=== PATIENT | male | born 1990 | race Two or more races ===

== ENCOUNTER 2016-03-25 18:19 | Emergency (ER) | payer MEDICAID ==
[~2016-03-25] VITALS: Ht 167.6 cm; Wt 77.1 kg
[2016-03-25 21:07] LABS: Basophils # (auto) 0.1 uL; Basophils % (auto) 0.7 % (0.0-2.0); Eosinophils # (auto) 0 uL; Hematocrit 44.4 % (41.0-53.0); Hemoglobin 14.6 g/dL (13.5-17.5); Lymphocytes # (auto) 1.8 uL; Lymphocytes % (auto) 18.2 % (10.0-50.0); Mean Corpuscular Hemoglobin 31.7 pg (28.0-32.0); Mean Corpuscular Hgb Conc. 32.9 g/dL (32.0-36.0); Mean Corpuscular Volume 96.5 fL (80.0-100.0); Monocytes # (auto) 0.9 uL; Monocytes % (auto) 8.9 % (0.0-12.0); Neutrophils # (auto) 7.2 uL; Neutrophils % (auto) 72.2 % (37.0-80.0); Platelet Count (auto) 289 10^3/uL (140-450); Red Cell Distribution Width 12.1 % (11.6-16.0)
[2016-03-25 21:25] LABS: Anion Gap 11 (5-15); Blood Urea Nitrogen 10 mg/dL (7-18); Calcium 8.7 mg/dL (8.5-10.1); Carbon Dioxide 23 mmol/L (21-32); Chloride 99 mmol/L (98-107); GFR African American 115 mL/min; GFR Non-African American 95 mL/min; Glucose 102 mg/dL (74-106); Sodium 133 mmol/L (136-145)
[2016-03-25 22:11] VITALS: BP 119/74
== END 2016-03-25 22:33 | disposition home or self-care (01) ==
LOC: EDBD 18:19 → ER 18:22
DX: S09.90XA Unspecified injury of head, initial encounter (principal); R55 Syncope and collapse; F11.10 Opioid abuse, uncomplicated; W19.XXXA Unspecified fall, initial encounter; Y93.89 Activity, other specified; Y99.8 Other external cause status; Y92.89 Other specified places as the place of occurrence of the external cause
CPT/HCPCS: 36415; 70450; 80048; 80320; 85025; 99285; G0434

== ENCOUNTER 2021-03-25 05:56 | Emergency (ER) | payer SELFPAY ==
[~2021-03-25] VITALS: Ht 170.2 cm; Wt 77.1 kg
[2021-03-25 05:58] VITALS: BP 113/92
== END 2021-03-25 08:44 | disposition left against medical advice (07) ==
LOC: ER 05:56
DX: F41.9 Anxiety disorder, unspecified (principal); Z53.21 Procedure and treatment not carried out due to patient leaving prior to being seen by health care provider

== ENCOUNTER 2021-11-01 17:27 | Inpatient (IN) | payer MEDICAID ==
[~2021-11-01] VITALS: Ht 170.2 cm; Wt 96.5 kg
[2021-11-01] MEDS ORDERED: SODIUM CHLORIDE 0.9% 2,000 ML IV ONE (18:45)
[2021-11-01] MEDS ORDERED: VANCOMYCIN 1GM/250ML 250 ML IV ONE (18:45)
[2021-11-01] MEDS ORDERED: CEFEPIME 1GM/ 50ML 50 ML IV ONE (18:45)
[2021-11-01 19:26] LABS: Basophils # (auto) 0 10 ^3/uL (0-0.2); Basophils % (auto) 0.1 % (0.0-2.0); Eosinophils # (auto) 0 10 ^3/uL (0-0.8); Eosinophils % (auto) 0.2 % (0.0-7.0); Hematocrit 33.7 % (41.0-53.0); Hemoglobin 11.7 g/dL (13.5-17.5); Lymphocytes # (auto) 0.8 10 ^3/uL (0.4-5.4); Lymphocytes % (auto) 8.7 % (10.0-50.0); Mean Corpuscular Hemoglobin 30.2 pg (28.0-32.0); Mean Corpuscular Hgb Conc. 34.7 g/dL (32.0-36.0); Monocytes # (auto) 1.3 10 ^3/uL (0-1.3); Monocytes % (auto) 13.5 % (0.0-12.0); Neutrophils # (auto) 7.5 10 ^3/uL (1.6-8.6); Neutrophils % (auto) 77.5 % (37.0-80.0); Red Blood Cells 3.87 10^6/uL (4.5-5.90); Red Cell Distribution Width 12.3 % (11.8-14.3); White Blood Cell 9.7 10^3/uL (4.4-10.8)
[2021-11-01 19:41] LABS: Albumin 2.6 g/dL (3.4-5.0); BUN/Creatinine Ratio 11.5; Calcium 8.2 mg/dL (8.5-10.1); Potassium 4.2 mmol/L (3.5-5.1)
[2021-11-01 19:44] LABS: Bilirubin, Total 0.6 mg/dL (0.2-1.0); Total Protein 7.6 g/dL (6.4-8.2)
[2021-11-01] MEDS ORDERED: HYDROcodone-ACET 5/325MG TAB PO ONE ×2 (20:45→23:15)
[2021-11-01] MEDS ORDERED: IOHEXOL 300 MG/ML 100ML BOTTLE IJ ONE ×2 (21:05)
[2021-11-01] MEDS ORDERED: ALBUMIN 5% 250 ML IV ONE (23:15)
[2021-11-01] MEDS ORDERED: ACETAMINOPHEN 325 MG TAB PO PRN (23:15)
[2021-11-01] MEDS ORDERED: FAMOTIDINE (10MG/ML) 2ML VL IV ONE (23:15)
[2021-11-01] MEDS ORDERED: diphenhdrAMINE HCL 50 MG/1 ML VL IV ONE (23:15)
[2021-11-01] MEDS ORDERED: VANCOMYCIN PER PHARMACY 0 MG IV SCH (23:15)
[2021-11-01] MEDS ORDERED: ONDANSETRON HCL 4 MG/2 ML VIAL IV PRN (23:15)
[2021-11-01] MEDS ORDERED: DexAMETHasone SOD PHOS 10MG/1ML VIAL INJ IV ONE (23:15)
[2021-11-01] MEDS ORDERED: TEMAZEPAM 15 MG CAP PO PRN (23:15)
[2021-11-02 04:57] LABS: Basophils # (auto) 0 10 ^3/uL (0-0.2); Basophils % (auto) 0.1 % (0.0-2.0); Eosinophils # (auto) 0 10 ^3/uL (0-0.8); Hemoglobin 11.4 g/dL (13.5-17.5); Lymphocytes # (auto) 0.6 10 ^3/uL (0.4-5.4); Lymphocytes % (auto) 7.3 % (10.0-50.0); Mean Corpuscular Hgb Conc. 34.7 g/dL (32.0-36.0); Mean Corpuscular Volume 86.6 fL (80.0-100.0); Monocytes # (auto) 0.6 10 ^3/uL (0-1.3); Neutrophils # (auto) 7.2 10 ^3/uL (1.6-8.6); Neutrophils % (auto) 85.6 % (37.0-80.0); Red Blood Cells 3.81 10^6/uL (4.5-5.90); Red Cell Distribution Width 12.2 % (11.8-14.3); White Blood Cell 8.4 10^3/uL (4.4-10.8)
[2021-11-02 05:10] LABS: Albumin 2.3 g/dL (3.4-5.0); Calcium 7.6 mg/dL (8.5-10.1)
[2021-11-02 05:13] LABS: BUN/Creatinine Ratio 13.1; Bilirubin, Total 0.5 mg/dL (0.2-1.0)
[2021-11-02] MEDS ORDERED: SODIUM CHLORIDE 0.9% 500 ML IV ONE (07:00)
[2021-11-02] MEDS: cefTRIAXone 1GM/50ML D5W 50 ML IV SCH (08:56)
[2021-11-02] MEDS: HYDROcodone-ACET 5/325MG TAB PO PRN ×3 (08:56→23:52)
[2021-11-02] MEDS: PANTOPRAZOLE 40 MG TAB PO SCH (08:56)
[2021-11-02] MEDS: SODIUM CHLORIDE 0.9% 1,000 ML IV SCH ×2 (09:25→18:44)
[2021-11-02] MEDS: LORazepam 0.5 MG TAB PO PRN (14:32)
[2021-11-02] MEDS: VANCOMYCIN 1GM/250ML 250 ML IV SCH (18:44)
[2021-11-02 22:00] VITALS: BP 101/73
[2021-11-03] MEDS: LORazepam 0.5 MG TAB PO PRN ×2 (01:46→21:46)
[2021-11-03] MEDS: SODIUM CHLORIDE 0.9% 1,000 ML IV SCH ×2 (04:57→14:00)
[2021-11-03 05:00] VITALS: BP 96/65
[2021-11-03 09:04] VITALS: BP 106/77
[2021-11-03] MEDS: HYDROcodone-ACET 5/325MG TAB PO PRN (09:48)
[2021-11-03] MEDS: PANTOPRAZOLE 40 MG TAB PO SCH (09:57)
[2021-11-03] MEDS: cefTRIAXone 1GM/50ML D5W 50 ML IV SCH (09:57)
[2021-11-03 13:00] VITALS: BP 105/75
[2021-11-03] MEDS: HYDROcodone-ACET 10/325MG TAB PO PRN (14:06)
[2021-11-03] MEDS ORDERED: METHADONE HCL 10 MG TAB PO ONE (15:45)
[2021-11-03 17:01] VITALS: BP 121/74
[2021-11-03] MEDS: VANCOMYCIN 1GM/250ML 250 ML IV SCH (17:42)
[2021-11-03] MEDS ORDERED: FUROSEMIDE 20 MG/2 ML VIAL IV ONE (19:30)
[2021-11-03 22:00] VITALS: BP 117/75
[2021-11-03] MEDS ORDERED: traZODone HCL 50 MG TAB PO SCH (22:00)
[2021-11-03 22:14] LABS: BUN/Creatinine Ratio 21.7; Calcium 7.9 mg/dL (8.5-10.1); Potassium 3.4 mmol/L (3.5-5.1)
[2021-11-04 04:08] LABS: Protein, Urine 54.2 mg/dL (0.0-11.9)
[2021-11-04 05:00] VITALS: BP 110/70
[2021-11-04 06:24] LABS: Albumin 1.9 g/dL (3.4-5.0); BUN/Creatinine Ratio 25.6; Calcium 7.8 mg/dL (8.5-10.1); Phosphorus 3.2 mg/dL (2.5-4.90); Potassium 3.5 mmol/L (3.5-5.1)
[2021-11-04] MEDS ORDERED: lamoTRIgine 25 MG TAB PO SCH (10:00)
[2021-11-04] MEDS: cefTRIAXone 1GM/50ML D5W 50 ML IV SCH (10:33)
[2021-11-04] MEDS: METHADONE HCL 10 MG TAB PO SCH (10:35)
[2021-11-04] MEDS: PANTOPRAZOLE 40 MG TAB PO SCH (10:37)
[2021-11-04] MEDS: HYDROcodone-ACET 10/325MG TAB PO PRN ×3 (10:38→20:51)
[2021-11-04] MEDS: SODIUM CHLORIDE 0.9% 1,000 ML IV SCH ×3 (10:40→21:29)
[2021-11-04] MEDS ORDERED: VANCOMYCIN 1GM/250ML 250 ML IV SCH (13:00)
[2021-11-04] MEDS: LORazepam 0.5 MG TAB PO PRN ×2 (13:40→22:26)
[2021-11-04] MEDS: VANCOMYCIN 1GM/250ML 250 ML IV SCH (16:00)
[2021-11-04] MEDS ORDERED: ARTIFICIAL TEARS 15ml EACHEYE PRN (17:30)
[2021-11-04] MEDS ORDERED: DexAMETHasone SOD PHOS 10MG/1ML VIAL INJ IV ONE (18:45)
[2021-11-04] MEDS: SALINE 0.65 % NASAL SPRAY 45ML BOTTLE EACHNOSTRI SCH ×2 (20:55→22:00)
[2021-11-04] MEDS: MEROPENEM 1GM IVPB 100 ML IV SCH (21:08)
[2021-11-04 22:00] VITALS: BP 117/79
[2021-11-04] MEDS: DexAMETHasone SOD PHOS 4 MG/1ML SDV INJ IV SCH (22:00)
[2021-11-04 22:04] LABS: Urine Bacteria FEW /hpf (None Seen); Urine Blood 3+ /uL (Negative); Urine Specific Gravity 1.009 (1.001-1.035); Urine WBC 34 /hpf (0 - 3)
[2021-11-04 22:14] LABS: Alcohol, Urine < 3.0 mg/dL (0-10); Amphetamine Screen, Urine NEGATIVE (NEGATIVE); Barbiturate Scree,Urine NEGATIVE (NEGATIVE); Benzodiazephine Screen, Urine NEGATIVE (NEGATIVE); Cannabinoid Screen, Urine NEGATIVE (NEGATIVE); Cocaine Screen, Urine NEGATIVE (NEGATIVE); Opiate Scree,Urine POSITIVE (NEGATIVE); Phencyclidine Screen, Urine NEGATIVE (NEGATIVE)
[2021-11-05] MEDS: VANCOMYCIN 1GM/250ML 250 ML IV SCH ×2 (04:19→17:11)
[2021-11-05] MEDS: HYDROcodone-ACET 10/325MG TAB PO PRN ×3 (04:27→20:45)
[2021-11-05 05:00] VITALS: BP 100/67
[2021-11-05] MEDS: SODIUM CHLORIDE 0.9% 1,000 ML IV SCH ×2 (06:00→16:00)
[2021-11-05] MEDS: MEROPENEM 1GM IVPB 100 ML IV SCH ×3 (06:12→22:12)
[2021-11-05] MEDS: DexAMETHasone SOD PHOS 4 MG/1ML SDV INJ IV SCH ×3 (06:12→22:07)
[2021-11-05] MEDS: SALINE 0.65 % NASAL SPRAY 45ML BOTTLE EACHNOSTRI SCH ×4 (06:48→22:13)
[2021-11-05 07:39] LABS: Basophils # (auto) 0 10 ^3/uL (0-0.2); Basophils % (auto) 0.1 % (0.0-2.0); Eosinophils # (auto) 0 10 ^3/uL (0-0.8); Hematocrit 34.7 % (41.0-53.0); Hemoglobin 11.8 g/dL (13.5-17.5); Lymphocytes % (auto) 16.7 % (10.0-50.0); Mean Corpuscular Hgb Conc. 34.1 g/dL (32.0-36.0); Mean Corpuscular Volume 87.9 fL (80.0-100.0); Monocytes # (auto) 0.3 10 ^3/uL (0-1.3); Monocytes % (auto) 5.4 % (0.0-12.0); Neutrophils # (auto) 4.5 10 ^3/uL (1.6-8.6); Neutrophils % (auto) 77.8 % (37.0-80.0); Red Blood Cells 3.95 10^6/uL (4.5-5.90); White Blood Cell 5.8 10^3/uL (4.4-10.8)
[2021-11-05 08:02] LABS: Albumin 2.1 g/dL (3.4-5.0); BUN/Creatinine Ratio 19.5; Calcium 7.9 mg/dL (8.5-10.1); Magnesium 2.3 mg/dL (1.6-2.6); Potassium 4.6 mmol/L (3.5-5.1)
[2021-11-05 08:10] LABS: Bilirubin, Total 0.2 mg/dL (0.2-1.0); CRP High Sensitivity 4.07 mg/dL (< 0.3); Total Protein 6.4 g/dL (6.4-8.2)
[2021-11-05 09:00] VITALS: BP 115/74
[2021-11-05] MEDS: PANTOPRAZOLE 40 MG TAB PO SCH (09:45)
[2021-11-05] MEDS: METHADONE HCL 10 MG TAB PO SCH (09:46)
[2021-11-05 13:00] VITALS: BP 122/80
[2021-11-05 17:00] VITALS: BP 130/74
[2021-11-05] MEDS: LORazepam 0.5 MG TAB PO PRN ×2 (17:11→22:07)
[2021-11-06 00:20] VITALS: BP 128/74
[2021-11-06] MEDS: SODIUM CHLORIDE 0.9% 1,000 ML IV SCH ×2 (02:00→12:00)
[2021-11-06 05:11] VITALS: BP 114/73
[2021-11-06] MEDS: MEROPENEM 1GM IVPB 100 ML IV SCH ×3 (05:57→22:47)
[2021-11-06] MEDS: DexAMETHasone SOD PHOS 4 MG/1ML SDV INJ IV SCH ×2 (05:57→22:47)
[2021-11-06] MEDS: SALINE 0.65 % NASAL SPRAY 45ML BOTTLE EACHNOSTRI SCH ×4 (06:08→22:46)
[2021-11-06] MEDS: HYDROcodone-ACET 10/325MG TAB PO PRN ×3 (06:08→20:42)
[2021-11-06 08:10] VITALS: BP 114/80
[2021-11-06 09:13] LABS: Basophils # (auto) 0.1 10 ^3/uL (0-0.2); Basophils % (auto) 0.9 % (0.0-2.0); Eosinophils # (auto) 0 10 ^3/uL (0-0.8); Hematocrit 33.8 % (41.0-53.0); Hemoglobin 11.5 g/dL (13.5-17.5); Lymphocytes # (auto) 1.2 10 ^3/uL (0.4-5.4); Lymphocytes % (auto) 13.1 % (10.0-50.0); Mean Corpuscular Hgb Conc. 34.1 g/dL (32.0-36.0); Monocytes # (auto) 0.4 10 ^3/uL (0-1.3); Monocytes % (auto) 4.1 % (0.0-12.0); Neutrophils # (auto) 7.7 10 ^3/uL (1.6-8.6); Neutrophils % (auto) 81.9 % (37.0-80.0); Red Blood Cells 3.84 10^6/uL (4.5-5.90); Red Cell Distribution Width 13.2 % (11.8-14.3); White Blood Cell 9.4 10^3/uL (4.4-10.8)
[2021-11-06] MEDS: LORazepam 0.5 MG TAB PO PRN ×2 (09:16→18:00)
[2021-11-06 09:34] LABS: Albumin 2.4 g/dL (3.4-5.0); Potassium 4.4 mmol/L (3.5-5.1)
[2021-11-06 09:38] LABS: BUN/Creatinine Ratio 18.8; Bilirubin, Total 0.4 mg/dL (0.2-1.0); Total Protein 6.4 g/dL (6.4-8.2)
[2021-11-06] MEDS: METHADONE HCL 10 MG TAB PO SCH (10:05)
[2021-11-06] MEDS: PANTOPRAZOLE 40 MG TAB PO SCH (10:05)
[2021-11-06] MEDS: VANCOMYCIN 1GM/250ML 250 ML IV SCH ×2 (10:06→20:41)
[2021-11-06 12:19] LABS: Alcohol, Urine < 3.0 mg/dL (0-10); Amphetamine Screen, Urine NEGATIVE (NEGATIVE); Barbiturate Scree,Urine NEGATIVE (NEGATIVE); Benzodiazephine Screen, Urine NEGATIVE (NEGATIVE); Cannabinoid Screen, Urine NEGATIVE (NEGATIVE); Cocaine Screen, Urine NEGATIVE (NEGATIVE); Opiate Scree,Urine NEGATIVE (NEGATIVE); Phencyclidine Screen, Urine NEGATIVE (NEGATIVE)
[2021-11-06 12:20] VITALS: BP 113/74
[2021-11-06 16:15] VITALS: BP 121/81
[2021-11-07 05:00] VITALS: BP 112/63
[2021-11-07] MEDS: SALINE 0.65 % NASAL SPRAY 45ML BOTTLE EACHNOSTRI SCH ×2 (05:53→13:46)
[2021-11-07] MEDS: MEROPENEM 1GM IVPB 100 ML IV SCH (06:41)
[2021-11-07 07:33] LABS: Basophils # (auto) 0 10 ^3/uL (0-0.2); Basophils % (auto) 0.1 % (0.0-2.0); Eosinophils # (auto) 0 10 ^3/uL (0-0.8); Eosinophils % (auto) 0.2 % (0.0-7.0); Hematocrit 32.1 % (41.0-53.0); Hemoglobin 10.7 g/dL (13.5-17.5); Lymphocytes # (auto) 1.5 10 ^3/uL (0.4-5.4); Lymphocytes % (auto) 19.4 % (10.0-50.0); Mean Corpuscular Hemoglobin 29.7 pg (28.0-32.0); Mean Corpuscular Hgb Conc. 33.5 g/dL (32.0-36.0); Mean Corpuscular Volume 88.6 fL (80.0-100.0); Monocytes # (auto) 0.7 10 ^3/uL (0-1.3); Monocytes % (auto) 8.9 % (0.0-12.0); Neutrophils # (auto) 5.4 10 ^3/uL (1.6-8.6); Neutrophils % (auto) 71.4 % (37.0-80.0); Red Blood Cells 3.62 10^6/uL (4.5-5.90); Red Cell Distribution Width 13.1 % (11.8-14.3); White Blood Cell 7.6 10^3/uL (4.4-10.8)
[2021-11-07 07:57] LABS: Albumin 2.2 g/dL (3.4-5.0); BUN/Creatinine Ratio 20.7; Calcium 7.8 mg/dL (8.5-10.1); Magnesium 2.2 mg/dL (1.6-2.6)
[2021-11-07 08:01] LABS: Bilirubin, Total 0.2 mg/dL (0.2-1.0); Phosphorus 3.8 mg/dL (2.5-4.90)
[2021-11-07 08:10] VITALS: BP 113/66
[2021-11-07] MEDS: VANCOMYCIN 1GM/250ML 250 ML IV SCH (09:30)
[2021-11-07] MEDS: DexAMETHasone SOD PHOS 4 MG/1ML SDV INJ IV SCH (10:37)
[2021-11-07] MEDS: PANTOPRAZOLE 40 MG TAB PO SCH (10:38)
[2021-11-07] MEDS: METHADONE HCL 10 MG TAB PO SCH (10:38)
[2021-11-07 12:10] VITALS: BP 99/78
[2021-11-07] MEDS ORDERED: BACDST PO (13:33)
[2021-11-07] MEDS ORDERED: CLIN300C8 PO (13:33)
[2021-11-07] MEDS ORDERED: CEFTRIAXONE SODIUM 2 GM in D5W 5% 50 ML IV SCH (17:00)
[2021-11-07] MEDS: HYDROcodone-ACET 10/325MG TAB PO PRN (17:09)
[2021-11-08 16:28] LABS: Hepatitis A Ab IgM Negative; Hepatitis B Core IgM Negative; Hepatitis C Antibody Negative (Negative)
== END 2021-11-07 20:40 | disposition home or self-care (01) | DRG 383 ==
LOC: EDBD 17:27 → ER 17:37 → TELE 23:13 → TELE-WESTW 11-02 17:50 → WEST WING 11-04 04:25
PROVIDERS: ADMIT Nurse Practitioner; ATTEND Internal Medicine
DX: L03.211 Cellulitis of face (principal); N17.0 Acute kidney failure with tubular necrosis; E43 Unspecified severe protein-calorie malnutrition; L03.213 Periorbital cellulitis; A49.02 Methicillin resistant Staphylococcus aureus infection, unspecified site; E86.0 Dehydration; L01.00 Impetigo, unspecified; Z20.822 Contact with and (suspected) exposure to COVID-19; N18.30 Chronic kidney disease, stage 3 unspecified; Z86.14 Personal history of Methicillin resistant Staphylococcus aureus infection; Z68.33 Body mass index [BMI] 33.0-33.9, adult
CPT/HCPCS: 36415; 70487; 71045; 80048; 80053; 80069; 80074; 80202; 80307; 81001; 82043; 82570; 83036; 83605; 83735; 84156; 84443; 85025; 85652; 86141; 86703; 87040; 87077; 87081; 87186; 87205; 93005; 96365; 96367; 96375; 99291; G0378; J0696; J1100; J2185; J3490; J7060

== ENCOUNTER 2022-10-02 19:37 | Emergency (ER) | payer MEDICAID ==
[~2022-10-02] VITALS: Ht 170.2 cm; Wt 81.8 kg
[~2022-10-02 19:37] MED LIST: BACDST PO; CLIN300C70 PO
[2022-10-02 19:41] VITALS: BP 121/71; PULSE 76; RESP 17; O2SAT 99
== END 2022-10-02 19:51 | disposition left against medical advice (07) ==
LOC: EDBD 19:37 → EDUNIT# 19:37 → ER 19:37
DX: R40.4 Transient alteration of awareness (principal); Z53.21 Procedure and treatment not carried out due to patient leaving prior to being seen by health care provider

== ENCOUNTER 2022-11-12 17:56 | Emergency (ER) | payer MEDICAID ==
[~2022-11-12] VITALS: Ht 170.2 cm; Wt 86.0 kg
[2022-11-12 19:47] LABS: Basophils # (auto) 0 10 ^3/uL (0-0.2); Basophils % (auto) 0.5 % (0.0-2.0); Eosinophils # (auto) 0.1 10 ^3/uL (0-0.8); Eosinophils % (auto) 1.9 % (0.0-7.0); Hematocrit 38.4 % (41.0-53.0); Hemoglobin 13.5 g/dL (13.5-17.5); Lymphocytes # (auto) 1.6 10 ^3/uL (0.4-5.4); Lymphocytes % (auto) 33.6 % (10.0-50.0); Mean Corpuscular Hemoglobin 31.1 pg (28.0-32.0); Mean Corpuscular Hgb Conc. 35.1 g/dL (32.0-36.0); Mean Corpuscular Volume 88.8 fL (80.0-100.0); Monocytes # (auto) 0.6 10 ^3/uL (0-1.3); Monocytes % (auto) 12.8 % (0.0-12.0); Neutrophils # (auto) 2.5 10 ^3/uL (1.6-8.6); Neutrophils % (auto) 51.2 % (37.0-80.0); Nucleated Red Blood Cells % 0.1 %; Red Blood Cells 4.33 10^6/uL (4.5-5.90); Red Cell Distribution Width 13.4 % (11.8-14.3); White Blood Cell 4.9 10^3/uL (4.4-10.8)
[2022-11-12 20:02] LABS: Alanine Aminotransferase 21 U/L (7-40); Alkaline Phosphatase 89 U/L (46-116); Anion Gap 5 (5-15); Aspartate Aminotransferase 15 U/L (13-40); BUN/Creatinine Ratio 12.7 (10.0-20.0); Blood Urea Nitrogen 13 mg/dL (9-23); Calcium 9.3 mg/dL (8.7-10.4); Carbon Dioxide 27 mmol/L (20-30); Chloride 104 mmol/L (98-107); Glucose 105 mg/dL (74-106); Sodium 136 mmol/L (136-145)
[2022-11-12 20:03] LABS: Albumin 4.3 g/dL (3.2-4.8); Bilirubin, Total 0.7 mg/dL (0.2-1.0); Total Protein 7.1 g/dL (5.7-8.2)
[2022-11-12 20:58] VITALS: BP 104/82; PULSE 89; RESP 18; TEMP 98; O2SAT 98
== END 2022-11-12 21:27 | disposition left against medical advice (07) ==
LOC: ER 17:56
DX: K52.9 Noninfective gastroenteritis and colitis, unspecified (principal); R10.9 Unspecified abdominal pain; R45.6 Violent behavior; Z76.5 Malingerer [conscious simulation]
CPT/HCPCS: 36415; 74176; 80053; 85025

== ENCOUNTER 2022-11-13 13:08 | Emergency (ER) | payer MEDICAID | END 2022-11-13 13:28 | disposition left against medical advice (07) | LOC: ER 13:08 | DX: Z09 Encounter for follow-up examination after completed treatment for conditions other than malignant neoplasm (principal); Z53.21 Procedure and treatment not carried out due to patient leaving prior to being seen by health care provider ==

== ENCOUNTER 2023-08-30 20:21 | Emergency (ER) | payer MEDICAID ==
[~2023-08-30] VITALS: Ht 170.2 cm; Wt 87.6 kg
[~2023-08-30 20:21] MED LIST changes: +CLIN1CAP70 PO; -CLIN300C70 PO
[2023-08-30 22:47] VITALS: BP 109/69; PULSE 95; RESP 20; O2SAT 93
[2023-08-31] MEDS ORDERED: AMOX875T4 PO (01:40)
[2023-08-31] MEDS ORDERED: IBUP-1456 PO (01:40)
== END 2023-08-31 01:46 | disposition home or self-care (01) ==
LOC: ER 20:21
DX: H66.93 Otitis media, unspecified, bilateral (principal); Z79.899 Other long term (current) drug therapy